=== PATIENT | male | born 1995 | race Caucasian/White ===

== ENCOUNTER 2021-10-07 18:51 | Emergency (ER) | payer OTHER ==
[~2021-10-07] VITALS: Ht 185.4 cm; Wt 81.6 kg
[2021-10-07 19:13] VITALS: BP 121/67
--- NOTE | 2021-10-07 20:26 | NUR ---
CALLED [facility] FOR IMAGING READ
--- NOTE | 2021-10-07 20:50 | NUR ---
Patient discharged to home in stable condition. Written and verbal after care instructions given. Patient verbalizes understanding of instruction.
== END 2021-10-07 21:13 | disposition home or self-care (01) ==
LOC: ER 18:57
DX: R05.8 Other specified cough (principal); Z77.120 Contact with and (suspected) exposure to mold (toxic)
CPT/HCPCS: 71045-TC